=== PATIENT | male | born 1995 | race African-American/Black ===

== ENCOUNTER 2022-05-01 08:21 | Emergency (ER) | payer MEDICAID ==
[~2022-05-01] VITALS: Ht 177.8 cm; Wt 78.0 kg
[2022-05-01] MEDS ORDERED: IBUP-2029 MT (08:36)
[2022-05-01] MEDS ORDERED: GUAI600T26 MT (08:36)
[2022-05-01] MEDS ORDERED: KETOROLAC 60MG/2ML VIAL IM ONE (08:45)
[2022-05-01 08:55] VITALS: BP 111/78
== END 2022-05-01 09:03 | disposition home or self-care (01) ==
LOC: ER 08:30
DX: B34.9 Viral infection, unspecified (principal); J06.9 Acute upper respiratory infection, unspecified
CPT/HCPCS: 96372; 99283; J1885; Z7610